=== PATIENT | female | born 1955 | race Caucasian/White ===

== ENCOUNTER 2023-09-02 01:17 | Emergency (ER) | payer OTHER, SELFPAY ==
[2023-09-02 01:31] VITALS: BP 160/93
[2023-09-02 01:46] LABS: % Basophils 0.8 % (0-2); % Eosinophils 3.1 % (0-6); % Immature Granulocytes 0.3 % (0-0.5); % Lymphocytes 39.7 % (20.5-51.1); % Monocytes 4.6 % (1.7-9.3); % Neutrophils 51.5 % (42.2-75.2); Absolute Basophils 0.1 10^3/uL (0-0.2); Absolute Eosinophils 0.2 10^3/uL (0-0.7); Absolute Lymphocytes 2.4 10^3/uL (1.2-3.4); Absolute Monocytes 0.3 10^3/uL (0.1-0.6); Absolute Neutrophils 3.2 10^3/uL (1.4-6.5); Hematocrit 27.3 % (37.0-47.0); Hemoglobin 10.2 g/dL (12.0-16.0); Mean Corp Hgb Conc. 37.4 g/dL (33.0-37.0); Mean Corpuscular Hgb 44.2 pg (27.0-31.0); Mean Corpuscular Volume 118.2 fL (81.0-99.0); Mean Platelet Volume 9.6 fL (7.4-10.4); Nucleated Red Blood Cells % 0 %; Platelet Count 258 10^3/uL (130-400); Red Blood Cell Count 2.31 10^6/uL (4.20-5.40); Red Cell Dist. Width 16.5 % (11.5-14.5); White Blood Cell Count 6.1 10^3/uL (4.8-10.8)
[2023-09-02 01:56] VITALS: BP 133/66
[2023-09-02 03:00] VITALS: BP 123/60
[2023-09-02 03:03] LABS: ALT (SGPT) 26 U/L (0-35); AST (SGOT) 35 U/L (14-36); Albumin 4.3 g/dl (3.5-5.0); Alkaline Phosphatase 55 U/L (38-126); Blood Urea Nitrogen 10 mg/dl (7-17); Carbon Dioxide 27 mmol/L (22-30); Chloride 108 mmol/L (98-107); Glucose 108 mg/dl (70-99); Potassium 3.8 mmol/L (3.5-5.1); Sodium 138 mmol/L (135-145); Total Bilirubin 1.6 mg/dl (0.2-1.3); Total Protein 6.6 g/dl (6.3-8.2); eGFR > 60.00
[2023-09-02 03:07] VITALS: BMI 34.2
[2023-09-02 03:09] LABS: Troponin I < 0.012 ng/ml
--- NOTE | 2023-09-02 04:17 | ED.GENMED ---
History of Present Illness
General
Chief Complaint: Chest Problem
Source: patient and spouse
Time Seen by Provider: 09/02/23 03:44
Travel History
Have you had any contact with someone who has COVID-19?: No
Do you have any symptoms of coronavirus? Fever > 100 degrees, chills, cough, shortness of breath, sore throat, loss of taste or smell, muscle aches, or headache?: No
History of Present Illness
History of Present Illness:
This patient is a 68-year-old female who presents emergency department with an episode of palpitations tonight. She first noticed the symptoms around 10 PM and states that the symptoms resolved just prior to my presentation to her. She describes
feeling like her heart was pounding and she looked at her Fitbit and her heart rate was in the 100s when she states her normal resting heart rate is in the 60s. She says she had very 'slight discomfort in the left side of her chest and axilla with
this. This is all now fully resolved. She denies associated diaphoresis, dyspnea, nausea, vomiting, back pain, neck pain, headache, dizziness. Of note, patient noted a few weeks ago, while on vacation, that when she was walking she developed
chest discomfort. She rested and it got better. She noted that she would again get chest discomfort when walking up to half block, always relieved with rest. When asked if it happened since then, she states 'I do not really do anything', so she
states that she has not had episodes although she has not been particularly active. Patient remains chest pain-free at this time. She does admit to drinking a soda tonight with caffeine in it which she suspects may have contributed to her symptoms
tonight.
Past History
Past History
ED Past Medical History: Other (Seasonal allergic rhinitis, osteoarthritis, vertigo, obesity, vitamin B-12 deficiency)
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
related to soft tissue attenuation, no transient ischemic dilation, normal LV size and wall motion, EF of 77%.)
Social History
Tobacco: Former smoker
Alcohol: Occasional
Drug: None
Personal:
Living: with family
Employment: Not employed
Family History
Family History: CAD (father); Negative Sudden
Phy Exam
Physical Exam
Physical Exam:
GENERAL: Alert , in no apparent distress
EYE: pupils equal and reactive
NECK: Supple, no significant adenopathy.
ENT: o/p clr, mmm.
CARDIAC: Regular rate and rhythm .
LUNGS: Clear breath sounds bilaterally, no acute respiratory distress, no wheezes/rales/rhonchi
ABDOMEN: Soft, without focal tenderness, no r/g, no cvat
NEUROLOGICAL: Alert and oriented, no focal neuro deficits
SKIN: Warm and dry, skin intact.
MUSCULOSKELETAL: No edema, well perfused.
PSYCH: Normal and appropriate interaction.
Course
Orders/Labs/Results
Orders:
Orders
09/02/23 01:23
Electrocardiogram (*1) Urgent
Reason for Study: Chest Pain
EKG- Treatment ONCE
09/02/23 01:39
Complete Blood Count/With Diff Urgent
Comprehensive Metabolic Panel Urgent
Troponin I Urgent
09/02/23 05:50
Troponin I Urgent
Abnormal Lab Results
09/02/23
01:39
RBC 2.31 L 10^6/uL
(4.20-5.40)
Hgb 10.2 L g/dL
(12.0-16.0)
Hct 27.3 L %
(37.0-47.0)
MCV 118.2 H fL
(81.0-99.0)
MCH 44.2 H pg
(27.0-31.0)
MCHC 37.4 H g/dL
(33.0-37.0)
RDW 16.5 H %
(11.5-14.5)
Chloride 108 H mmol/L
(98-107)
Glucose 108 H mg/dl
(70-99)
Total Bilirubin 1.6 H mg/dl
(0.2-1.3)
09/02/23 01:39
09/02/23 01:39
Vital Signs
Initial and Last Documented VS:
Initial Vital Signs
Temp Pulse Resp BP Pulse Ox
98.4 F 80 16 160/93 100
09/02/23 01:31 09/02/23 01:31 09/02/23 01:31 09/02/23 01:31 09/02/23 01:31
Last Documented Vital Signs
Temp Pulse Resp BP Pulse Ox
98.4 F 68 12 123/60 99
09/02/23 01:31 09/02/23 03:30 09/02/23 03:30 09/02/23 03:00 09/02/23 03:30
*Critical Care Note
Total Time (30-74mins, 75-104mins- exclusive of procedures): Not Applicable
Update Note
Update Note:
Patient presents to the Emergency Department with ____palpitations and mild chest pain
Number and Complexity of Problems Addressed at the Encounter
� Chronic conditions affecting care:
� Acute Exacerbation and/or Progression of Chronic Illness:
� Differential Diagnosis includes: But not limited to tachycardia related to caffeine, electrolyte disorder, SVT, A-fib, etc.
Amount and/or Complexity of Data to be Reviewed and Analyzed
� I performed an independent evaluation of and my interpretation is:
EKG: Read by me, normal sinus rhythm, normal rate, no acute ischemia
CT:
Xrays:
Laboratory Studies: mild anemia (pt made aware), otherwise generally unremkarable
Other:
� Review of other/old records reveals:
� Clinical information was obtained by an independent historian: who is at bedside
� Prescriptions/Medications Considered but not given:
� Further testing considered but not performed:
Risk of Complications and/or Morbidity or Mortality of Patient Management
� Social determinants of health affecting care:
� Discussion with other providers (PCP, Hospitalists, Consultants, etc):
� Escalation of care including admission/observation vs risk of discharge considered: obsercation here, pt remains stable in nad. trop times two wnl, hr wnl. no arrhythmia noted. recommend cards f/u given recent sxs.
ED Attending Note
-
Portions of this chart may have been created with voice recognition software.� Occasional wrong word or��sound alike� substitutions may have occurred due to the inherent limitations of voice recognition software.
Discharge Plan
Departure
Patient Disposition: Home (Routine Discharge)
Date of Disposition: 09/02/23
Time of Disposition: 06:37
Patient with high blood pressure during this ER visit?: Yes
Condition: Good
Discharge Problem:
Heart palpitations
Instructions: Palpitations, Chest Pain DCA Follow Up, BLOOD PRESSURE
Prescriptions:
No Action
Claudia
1 tab PO DAILY PRN (Reason: allergies)
Symbicort 160/4.5 Mcg Inhaler:
2 puff inhalation BID PRN (Reason: allergies)
Referrals:
NONE,* [Family Provider] -
Activity Restrictions/Additional Instructions:
IF YOU DEVELOP RECURRENT/NEW CHEST PAIN, ANY TROUBLE BREATHING, FEVER, VOMITING, DIZZINESS, OR OTHER WORRISOME SIGNS, GO TO THE ER IMMEDIATELY!
Interventions
Interventions:
*Risk Screen - Suicide Last Done: 09/02/23 01:31
*General Assessment Last Done: 09/02/23 01:31
*Neglect/Abuse Screening Last Done: 09/02/23 01:31
ED- Fall Risk Assessment Last Done: 09/02/23 03:07
*ED COVID-19 Vaccine History Last Done: 09/02/23 03:07
ED- Cardiac Assessment Last Done: 09/02/23 03:07
ED- Pulmonary Assessment Last Done: 09/02/23 03:07
[2023-09-02 06:29] LABS: Troponin I < 0.012 ng/ml
== END 2023-09-02 06:59 | disposition home or self-care (01) ==
LOC: EMR 01:17
PROVIDERS: EMERGENCY PHYSICIAN Emergency Medicine
DX: R00.2 Palpitations (principal); M19.90 Unspecified osteoarthritis, unspecified site; E66.9 Obesity, unspecified; Z82.49 Family history of ischemic heart disease and other diseases of the circulatory system; Z87.891 Personal history of nicotine dependence; Z98.51 Tubal ligation status
CPT/HCPCS: 99283; 80053; 84484; 85025; 93005

== ENCOUNTER → 2023-09-24 07:38 | Outpatient (REF) | payer OTHER, SELFPAY | LOC: DHCBC/DCA 07:38 | PROVIDERS: ATTENDING PHYSICIAN Internal Medicine Cardiovascular Disease | DX: R00.0 Tachycardia, unspecified (principal); R00.2 Palpitations | CPT/HCPCS: 78452; 93017; A9500; J2785 ==

== ENCOUNTER → 2023-10-08 07:15 | Outpatient (REF) | payer OTHER, SELFPAY | LOC: RCS 07:15 | PROVIDERS: ATTENDING PHYSICIAN Internal Medicine Cardiovascular Disease; FAMILY PHYSICIAN Internal Medicine | DX: R00.2 Palpitations (principal); R00.0 Tachycardia, unspecified | CPT/HCPCS: 93306 ==

== ENCOUNTER → 2024-04-10 06:15 | Day surgery (SDC) | payer OTHER, SELFPAY | LOC: GI 06:15 | PROVIDERS: ATTENDING PHYSICIAN Internal Medicine; FAMILY PHYSICIAN Internal Medicine | DX: D50.9 Iron deficiency anemia, unspecified (principal); E53.8 Deficiency of other specified B group vitamins; K44.9 Diaphragmatic hernia without obstruction or gangrene; K31.7 Polyp of stomach and duodenum; K31.89 Other diseases of stomach and duodenum; K29.50 Unspecified chronic gastritis without bleeding | CPT/HCPCS: 45378; 43239; 88305; 88341; 88342 ==